=== PATIENT | male | born 1955 | race Caucasian/White ===

== ENCOUNTER → 2018-04-30 | Outpatient (CLI) | payer MEDICARE ==
--- NOTE | 2018-04-30 08:30 | CTL ---
EXAMINATION TYPE: CT Low Dose Lung DATE OF EXAM ORDERED: 04/30/2018 HISTORY: Personal history of tobacco abuse. Lung cancer screening CT DLP: [address] CTDI: 1.68 mGy Automated exposure control for dose reduction was used. SCREENING VISIT: Initial COMPARISON: None TECHNIQUE: Low dose computed tomography scan was performed through the chest at 1 mm thick sections a nd reconstructed images in the coronal plane at [address] DIAGNOSTIC QUALITY: Limited, but interpretable FINDINGS: LUNG NODULES: None. LUNGS: COPD: Severity: Mild Fibrosis: Severity: None Lymph nodes: Nonenlarged Other findings: Minimal bibasilar subsegmental atelectasis is present. RIGHT PLEURAL SPACE: Effusion: None Calcification: None Thickening: None Pneumothorax: None LEFT PLEURAL SPACE: Effusion: None Calcification: None Thickening: None Pneumothorax: None HEART: Heart Size: Nonenlarged. Ascending thoracic aorta is upper limits of normal size measuring 3.0 cm and ascending thoracic aorta is within normal limits measuring 3.6 cm. Coronary calcification: Mild Pericardial effusion: None OTHER FINDINGS: Upper abdomen: Unenhanced portions are grossly unremarkable. Bony thorax: Minimal multilevel degenerative change Supraclavicular region: No adenopathy Other: Very minimal bilateral retroareolar symmetric gynecomastia is incidentally seen. IMPRESSION: No pulmonary nodules are identified on today's examination however there is mild backgrou nd emphysematous change and annual low dose CT is recommended given the patient's history of tobacco abuse. FOLLOW UP CT CHEST RECOMMENDATION: [address] LUNG RAD: Lung-Rad 1 Negative
== END ==
LOC: RADCTMAIN 07:21
PROVIDERS: ATTEND Family Medicine
DX: Z12.2 Encounter for screening for malignant neoplasm of respiratory organs (principal); Z87.891 Personal history of nicotine dependence

== ENCOUNTER → 2018-04-30 | Outpatient (CLI) | payer MEDICARE ==
--- NOTE | 2018-04-30 07:59 | US ---
EXAMINATION TYPE: US duplex aorta DATE OF EXAM: 04/30/2018 COMPARISON: NONE CLINICAL HISTORY: 63-year-old male I10.0 HYPERTENSION. TECHNIQUE: Multiple sonographic images of the abdominal aorta are obtained. FINDINGS: EXAM MEASUREMENTS: Abdominal Aorta: Proximal: 2.2 x 2.3 cm Mid: 1.8 x 2.1 cm Distal: 2.0 x 1.8 cm Common iliac arteries: rt, 1.5 x 1.3 cm lt, 1.4 x 1.1 cm Normal caliber aorta, moderate atherosclerotic calcifications are noted. IMPRESSION: No evidence for abdominal aortic aneurysm. The right common iliac artery is borderline ectatic at 1.5 cm.
== END | disposition home or self-care (01) ==
LOC: RADUSWWP 06:45
PROVIDERS: ATTEND Family Medicine
DX: Z13.6 Encounter for screening for cardiovascular disorders (principal); I10 Essential (primary) hypertension
CPT/HCPCS: 93979

== ENCOUNTER → 2019-07-31 | Outpatient (CLI) | payer MEDICARE ==
--- NOTE | 2019-07-31 08:57 | CTL ---
EXAMINATION TYPE: CT Low Dose Lung DATE OF EXAM ORDERED: 07/31/2019 COMPARISON: April 30, 2018 HISTORY: . Low Dose CT Lung Screening CT DLP: [address] CTDI: 1.92 mGy IV CONTRAST USED: None. SCREENING VISIT: First visit COMPARISON: None. TECHNIQUE: Low dose computed tomography scan was performed through the chest at 1 millimeter thick se ctions and reconstructed images in the coronal plane at [address] DIAGNOSTIC QUALITY: Satisfactory FINDINGS: LUNG NODULES: Not presentLeft lung: no nodules identified.Right lung: no nodules identified. LUNGS: COPD: Severity: None Fibrosis: Severity:None Lymph nodes: None Other findings: None RIGHT PLEURAL SPACE: Effusion: None Calcification: None Thickening: None Pneumothorax: None LEFT PLEURAL SPACE: Effusion: None Calcification: None Thickening: None Pneumothorax: None HEART: Heart Size: Mildly enlarged Coronary calcification: Mild Pericardial effusion: None OTHER FINDINGS: Upper abdomen: No significant abnormality Bony thorax: Degenerative changes Supraclavicular region: No significant abnormalityOther: No significant abnormalityI IMPRESSION: category [address] CHEST RECOMMENDATION: Follow-up screening in one year smoking cessation recommended. CT LUNG RAD: LUNG RAD category 1 negative
== END ==
LOC: RADCTMAIN 07:58
PROVIDERS: ATTEND Family Medicine
DX: Z12.2 Encounter for screening for malignant neoplasm of respiratory organs (principal); F17.200 Nicotine dependence, unspecified, uncomplicated

== ENCOUNTER → 2021-09-07 | Outpatient (CLI) | payer MEDICARE ==
--- NOTE | 2021-09-07 12:22 | CTL ---
EXAMINATION TYPE: CT Low Dose Lung DATE OF EXAM ORDERED: 09/07/2021 HISTORY: . Lung cancer screening CT DLP: 110.[address] CTDI: 3.2 mGy Automated exposure control for dose reduction was used. SCREENING VISIT: COMPARISON: 07/31/2019, 04/30/2018 TECHNIQUE: Low dose computed tomography scan was performed through the chest at 1 mm thick sections a nd reconstructed images in multiple planes at 1 mm and [address] DIAGNOSTIC QUALITY: Satisfactory FINDINGS: There is a calcified granuloma right upper lobe. Numerous subpleural less than 5 mm nodules bilateral ly in the lung apices. Atherosclerotic change aorta coronary artery calcification. Heart size normal. No pleural effusion or pneumothorax. No consolidative pneumonia. Basilar bronchiectasis noted. No pleural calcifications. No diagnostic evidence of chronic interstitial lung disease. Hypertrophic and degenerative changes of the spine. IMPRESSION: 1. Multiple sub-5 mm nodules have a benign appearance. 2. Coronary artery calcification. CT LUNG RAD AND CT CHEST RECOMMENDATION: Lung-Rad 2 Benign Appearance or Behavior: Continue annual sc reening with LDCT in 12 months. S Modifier (other clinically significant findings):
== END | disposition home or self-care (01) ==
LOC: RADCTMAIN 11:18
PROVIDERS: ATTEND Family Medicine
DX: Z12.2 Encounter for screening for malignant neoplasm of respiratory organs (principal); R91.8 Other nonspecific abnormal finding of lung field; I25.10 Atherosclerotic heart disease of native coronary artery without angina pectoris
CPT/HCPCS: 71271

== ENCOUNTER → 2023-11-09 | Outpatient (CLI) | payer MEDICARE ==
--- NOTE | 2023-11-09 14:49 | CTL ---
EXAMINATION TYPE: CT Low Dose Lung DATE OF EXAM ORDERED: 11/09/2023 HISTORY: 50 pack year history of smoking. Patient is a current smoker. Lung cancer screening CT DLP: 88.[address] CTDI: 2.3 mGy Automated exposure control for dose reduction was used. SCREENING VISIT: Follow-up. COMPARISON: Multiple previous with the most recent from 11/07/2022. TECHNIQUE: Low dose computed tomography scan was performed through the chest at 1 mm thick sections a nd reconstructed images in multiple planes at 1 mm and [address] DIAGNOSTIC QUALITY: Satisfactory FINDINGS: LUNG NODULES: None. LUNGS: COPD: Severity: None Fibrosis: Severity: None Lymph nodes: No adenopathy. Other findings: None significant. RIGHT PLEURAL SPACE: Effusion: None Calcification: None Thickening: None Pneumothorax: None LEFT PLEURAL SPACE: Effusion: None Calcification: None Thickening: None Pneumothorax: None HEART: Heart Size: Normal Coronary Calcification: There is moderate vascular calcification throughout the thoracic aorta withou t evidence of aneurysmal dilation. Mild patchy coronary artery calcifications are also seen. Pericardial Effusion: None OTHER FINDINGS: Upper abdomen: None Bony thorax: None Supraclavicular region: None Other: None IMPRESSION: 1. Negative lung cancer screening examination for significant pulmonary nodules. 2. Mild coronary artery calcifications. CT LUNG RAD AND CT CHEST RECOMMENDATION: Lung-Rad 1 Negative: Continue annual screening with LDCT in 12 months. S Modifier (other clinically significant findings): None.
== END | disposition home or self-care (01) ==
LOC: RADCTMAIN 12:47
PROVIDERS: ATTEND Family Medicine
DX: Z12.2 Encounter for screening for malignant neoplasm of respiratory organs (principal); F17.210 Nicotine dependence, cigarettes, uncomplicated; I25.10 Atherosclerotic heart disease of native coronary artery without angina pectoris
CPT/HCPCS: 71271